=== PATIENT | male | born 1990 | race Caucasian/White ===

== ENCOUNTER → 2021-03-22 17:47 | Outpatient (CLI) | payer OTHER, SELFPAY | PROVIDERS: PCP Family Medicine; Visit Provider Family Medicine | DX: R30.0 Dysuria (principal) | CPT/HCPCS: 87086 ==

== ENCOUNTER → 2021-03-23 11:14 | Outpatient (CLI) | payer OTHER, SELFPAY ==
[2021-03-23 15:24] LABS: Anion Gap 5 (5-15); BUN 10 mg/dL (7-18); BUN/Creat Ratio 9.4 RATIO (10-20); Calcium,Total 9.3 mg/dL (8.5-10.1); Chloride 103 mmol/L (98-107); Creatinine, Serum 1.06 mg/dL (0.70-1.30); EST Glomerular Filtration Rate 87 mL/min (>60); Est Glom Filt Rate - Afr Amer 105 mL/min (>60); Glucose 78 mg/dL (74-106); Potassium 4.6 mmol/L (3.5-5.1); Sodium Level 137 mmol/L (136-145)
== END ==
PROVIDERS: PCP Family Medicine; Referring Provider Family Medicine; Visit Provider Family Medicine
DX: R30.0 Dysuria (principal)
CPT/HCPCS: 36415; 80048

== ENCOUNTER → 2021-05-05 08:28 | Outpatient (CLI) | payer OTHER, SELFPAY ==
[2021-05-05 10:37] LABS: Vitamin D,25 Hydroxy 37.1 ng/mL
[2021-05-05 10:47] LABS: Anion Gap 4 (5-15); BUN 14 mg/dL (7-18); BUN/Creat Ratio 14.3 RATIO (10-20); Calcium,Total 9.2 mg/dL (8.5-10.1); Chloride 105 mmol/L (98-107); Cholesterol 172 mg/dL (200); Creatinine, Serum 0.98 mg/dL (0.70-1.30); EST Glomerular Filtration Rate 95 mL/min (>60); Est Glom Filt Rate - Afr Amer 115 mL/min (>60); Glucose 81 mg/dL (74-106); High Density Lipoprotein 47 mg/dL; Potassium 4.1 mmol/L (3.5-5.1); Sodium Level 138 mmol/L (136-145); Triglycerides 53 mg/dL; Very Low Density Lipoprotein 11 mg/dL (5-40)
== END ==
PROVIDERS: PCP Family Medicine; Visit Provider Family Medicine
DX: Z00.00 Encounter for general adult medical examination without abnormal findings (principal)
CPT/HCPCS: 36415; 80048; 80061; 82306

== ENCOUNTER 2022-10-17 03:00 | Emergency (ER) | payer BC, SELFPAY ==
--- NOTE | 2022-10-17 03:00 | EDS_ITS ---
DATE OF SERVICE 10/17/22 CHIEF COMPLAINT Chest discomfort HISTORY OF PRESENT ILLNESS This is a 33-year-old male with no significant past medical or surgical history. Currently on no medications. States since Saturday he has had some chest discomfort. This is not exertional. He has no cardiac history. No significant family history. No family history of clotting disorder. He has had no recent travel, surgery or immobilization. States its been midsternal and comes and goes since Saturday. Its not associated with any type of exertion or walking or going up and down steps. There is no radiation to his back, neck, arm or jaw. Tonight he felt somewhat short of breath. He denies any diaphoresis or nausea. He has never had any cardiac work-up. He denies any history of DVT or PE. He has had no recent travel, surgery or immobilization. Past Medical History [Denies.] Social History [Non-smoker. Nondrinker.] Review of Systems [Atypical nonexertional chest pain.] PHYSICAL EXAMINATION [32-year-old male no acute distress. Vital signs are stable afebrile. Initial blood pressure 119/76. Pulse ox 100% on room air no signs of hypoxia. Young male no acute distress. Significant other bedside. H EENT exam unremarkable. Neck nontender. No JVD. No lymphadenopathy. Lungs clear to auscultation bilaterally. Heart regular rhythm rate about 65 no murmur. Chest wall nontender. Abdomen soft nontender. Moving all 4 extremities. Calves are nontender without edema or cords. Equal symmetrical radial pulses. Normal strength and range of motion of both upper and lower extremities. Back nontender. Neurologically is awake and alert with no focal motor deficits. Benign exam.] EMERGENCY DEPARTMENT COURSE AND TREATMENT [32-year-old male no significant family history or risk factors for cardiac disease. Clinically this does not sound like dissection. He has had no risk factors or family history of clotting disorder and he has never had a DVT or PE. Physical exam is benign. His chest wall is nontender. Clinically this does not sound like reflux. He has been under increased stress at work. Will undergo a cardiac work-up. His initial EKG shows a sinus rhythm rate of 63 with no acute signs of HI or ischemia. No signs of pericarditis.] Lab test: EKG shows a sinus rhythm rate of 63 no acute signs of HI or ischemia. Rhythm strip sinus rhythm rate of 63. Chest x-ray, portable, single view interpreted by myself shows no acute abnormality. Normal cardiac silhouette. Normal mediastinum. Normal aortic knob. Normal lung aguilar. No infiltrates. No pneumothorax. Normal bony structures. No rib fractures. CBC shows a white count of 14.1. H&H of 14 and 43. Platelets of 206. D-dimer is negative at 0.24. Chemistries show a gap of 7. Glucose of 130. Normal BUN and creatinine of 16 and 1.1. Troponin is normal at less than 3. Repeat exam patient is doing well at 4:25 AM. He is completely pain-free symptom-free. We went over all his test results. Given his atypical pain. Is not exertional. He has had intermittently over 5 days and on think he needs a second troponin. Patient has a follow-up appointment to see his primary care physician Dr. Gerardo Durham at 9 AM today. He will be discharged to home. Impression: 1. Chest pain of uncertain etiology
--- NOTE | 2022-10-17 03:01 | EKG12_ITS ---
Test Reason : CP Blood Pressure : / mmHG Vent. Rate : 063 BPM Atrial Rate : 063 BPM P-R Int : 162 ms QRS Dur : 106 ms QT Int : 416 ms P-R-T Axes : 066 031 036 degrees QTc Int : 425 ms Normal sinus rhythm Incomplete right bundle branch block Borderline ECG Confirmed by SHALINI PRAJAPATI, JAYDEN ([id number]), health editor MIKA ZHENG ([id number]) on 10/23/2022 11:38:39 AM Referred By: MIRNA Confirmed By:JAYDEN LOYA MD
--- NOTE | 2022-10-17 03:20 | RAD_ITS ---
EXAM: XR CHEST, 1 VIEW CLINICAL INDICATION: TIGHTNESS IN CHEST TECHNIQUE: Frontal view of the chest. This report was created using [employer] report generation technology. COMPARISON: None. FINDINGS: LUNGS AND PLEURAL SPACES: Unremarkable. No consolidation or edema. No pneumothorax. No effusion. HEART: Unremarkable. Cardiac silhouette not enlarged. MEDIASTINUM: Central airways and mediastinal contour are unremarkable. BONES/JOINTS: Unremarkable. SOFT TISSUES: Unremarkable. RAD/Chest 1 View (Portable) IMPRESSION: No radiographic evidence of acute cardiopulmonary disease. Electronically Signed: Cr Call MD at 3:48 EST ,
[2022-10-17 05:42] LABS: D-Dimer Quantitative (DVT/PE) < 0.27 FEU/ug/m (0.27-0.49)
[2022-10-17 05:46] LABS: Absolute Lymphocyte Count 6.95 X10^3/uL (0.83-4.51); Absolute Neutrophil Count 6.1 X10^3/uL (2.0-7.7); Basophil# 0.05 X10^3/uL; Basophil% 0.4 % (0-1); Eosinophil# 0.11 X10^3/uL; Eosinophils% 0.8 % (0-5); Hematocrit 43.2 % (40-54); Hemoglobin 14.6 g/dL (13.0-16.5); Lymphocyte # 6.95 X10^3/ul (0.83-4.51); Mean Corp Hgb Conc 33.8 g/dL (32-36); Mean Corpuscular Hgb 30.9 pg (27.0-32.0); Mean Corpuscular Volume 91.5 fL (80-94); Mean Platelet Vol. 10.3 fl (6.2-12.0); Monocyte# 0.95 X10^3/uL; Monocyte% 6.7 % (0-10); NRBC Flagged by Analyzer 0 % (0-5); POSITIVE DIFFERENTIAL YES; POSITIVE MORPHOLOGY YES; Platelet Count 206 K/mm3 (150-450); RBC Distribution Width CV 12.4 % (11.6-14.6); RBC Distribution Width SD 41.8 fl (35.1-43.9); Red Blood Count 4.72 M/mm3 (4.6-6.2); White Blood Count 14.2 K/mm3 (4.4-11.0)
[2022-10-17 05:58] LABS: Differential Indicated SCAN CRITERIA MET
[2022-10-17 06:05] LABS: Differential Comment SCANNED; Reactive Lymphocyte 1+
[2022-10-17 08:01] LABS: Anion Gap 7 (5-15); BUN 16 mg/dL (7-18); BUN/Creat Ratio 13.6 RATIO (10-20); Chloride 107 mmol/L (98-107); Creatinine, Serum 1.18 mg/dL (0.70-1.30); EST Glomerular Filtration Rate 76 mL/min (>60); Est Glom Filt Rate - Afr Amer 92 mL/min (>60); Glucose 130 mg/dL (74-106); Potassium 3.1 mmol/L (3.5-5.1); Sodium Level 140 mmol/L (136-145); Troponin-I HS < 3 pg/mL (3.0-78.0)
== END 2022-10-17 04:38 | disposition home or self-care (01) ==
LOC: ED 05:10
PROVIDERS: Emergency Provider Emergency Medicine; PCP Family Medicine; Visit Provider Emergency Medicine
DX: R07.9 Chest pain, unspecified (principal)
CPT/HCPCS: 36415; 71045; 80048; 84484; 85025; 85379; 93005; 94760; 99284

== ENCOUNTER → 2022-11-14 | Outpatient (CLI) | payer BC, SELFPAY ==
[2022-11-14 11:14] LABS: Anion Gap 4 (5-15); BUN 13 mg/dL (7-18); Calcium,Total 9.2 mg/dL (8.5-10.1); Chloride 105 mmol/L (98-107); EST Glomerular Filtration Rate 92 mL/min (>60); Est Glom Filt Rate - Afr Amer 111 mL/min (>60); Glucose 82 mg/dL (74-106); Potassium 4.4 mmol/L (3.5-5.1); Sodium Level 139 mmol/L (136-145)
== END | disposition home or self-care (01) ==
LOC: MFPLAB 09:14
PROVIDERS: PCP Family Medicine; Referring Provider Family Medicine; Visit Provider Family Medicine
DX: E87.6 Hypokalemia (principal)
CPT/HCPCS: 36415; 80048

== ENCOUNTER → 2024-05-27 | Outpatient (CLI) | payer OTHER, SELFPAY ==
[2024-05-27 11:14] LABS: Anion Gap 6 (5-15); BUN 15 mg/dL (7-18); BUN/Creat Ratio 12.6 RATIO (10-20); Calcium,Total 9.4 mg/dL (8.5-10.1); Chloride 107 mmol/L (98-107); Cholesterol 164 mg/dL (200); Creatinine, Serum 1.19 mg/dL (0.70-1.30); EST Glomerular Filtration Rate 75 mL/min (>60); Est Glom Filt Rate - Afr Amer 90 mL/min (>60); Glucose 92 mg/dL (74-106); High Density Lipoprotein 43 mg/dL; Potassium 4.3 mmol/L (3.5-5.1); Sodium Level 138 mmol/L (136-145); Triglycerides 71 mg/dL; Very Low Density Lipoprotein 14 mg/dL (5-40)
== END | disposition home or self-care (01) ==
LOC: MTLAB 07:37
PROVIDERS: PCP Family Medicine; Referring Provider Family Medicine; Visit Provider Family Medicine
DX: Z00.00 Encounter for general adult medical examination without abnormal findings (principal)
CPT/HCPCS: 36415; 80048; 80061

== ENCOUNTER → 2025-05-27 | Outpatient (CLI) | payer OTHER, SELFPAY ==
[2025-05-27 10:59] LABS: Anion Gap 11 (5-15); BUN 14 mg/dL (4-19); BUN/Creat Ratio 14.0 RATIO (10-20); Calcium,Total 9.5 mg/dL (7.6-11.0); Carbon Dioxide 24.3 mmol/L (21.0-32.0); Chloride 103 mmol/L (98-108); Cholesterol 177 mg/dL (<=200); Glucose 87 mg/dL (70-99); Low Density Lipoprotein Calc. 113 mg/dL; Potassium 4.7 mmol/L (3.3-5.1); Triglycerides 86 mg/dL; Very Low Density Lipoprotein 17 mg/dL (5-40); cholesterol:hdl ratio screen 3.75
== END | disposition home or self-care (01) ==
LOC: MFPLAB 08:17
PROVIDERS: PCP Family Medicine; Referring Provider Family Medicine; Visit Provider Family Medicine
DX: Z00.00 Encounter for general adult medical examination without abnormal findings (principal)
CPT/HCPCS: 36415; 80048; 80061